=== PATIENT | female | born 1995 | race Caucasian/White ===

== ENCOUNTER 2017-11-17 21:08 | Inpatient (IN) | payer SELFPAY ==
[~2017-11-17] VITALS: Ht 162.6 cm; Wt 75.7 kg
[2017-11-17 21:48] LABS: CLARITY URINE CLEAR (CLEAR); COLOR URINE DARK YELLOW (YELLOW); KETONES URINE 4+ (NEGATIVE); LEUKOCYTE ESTERASE URINE TRACE (NEGATIVE); NITRITE URINE NEGATIVE (NEGATIVE); OCCULT BLOOD URINE NEGATIVE (NEGATIVE); PH URINE 6.5 (4.5-8.0); PROTEIN URINE NEGATIVE (NEGATIVE); SPECIFIC GRAVITY URINE 1.019 (1.005-1.030)
[2017-11-18] MEDS ORDERED: ONDANSETRON HCL 4MG/2ML INJ IV STA (00:14)
[2017-11-18] MEDS ORDERED: FAMOTIDINE 20MG/2ML VIAL IV STA (00:14)
[2017-11-18] MEDS ORDERED: SODIUM CHLORIDE 0.9% 1,000 ML IV ONE (00:14)
[2017-11-18 01:30] LABS: BASOPHILS % 0.4 % (0.0-2.0); EOSINOPHILS % 0.7 % (0.0-5.0); HEMATOCRIT. 40.8 % (36.0-48.0); HEMOGLOBIN. 14.4 g/dL (12.0-16.0); LYMPHOCYTES % 19.3 % (20.0-50.0); MEAN CORPUSCULAR VOLUME 87.8 fL (81.0-99.0); MEAN PLATELET VOLUME 8.4 fl (7.4-10.4); MONOCYTES % 7.9 % (2.0-8.0); NEUTROPHILS % 71.7 % (40.0-76.0); PLATELET 261 x1000/uL (130-400); RED BLOOD CELL COUNT 4.65 mill/uL (4.2-5.4); RED CELL DISTRIBUTION WIDTH 13.3 % (11.6-14.6)
[2017-11-18 01:31] LABS: CHLORIDE 100 mEq/L (98-107)
[2017-11-18 01:35] LABS: HCG SCREEN NEGATIVE; INR 1.1; PROTHROMBIN TIME 10.7 sec (9.1-11.1)
[2017-11-18 01:40] LABS: ETHANOL BLOOD < 10 mg/dL
[2017-11-18] MEDS ORDERED: ACETAMINOPHEN 650MG/20.3ML UDC GT PRN (04:15)
[2017-11-18] MEDS ORDERED: CLONIDINE 0.1MG TABLET PO PRN (04:15)
[2017-11-18] MEDS ORDERED: MORPHINE SULFATE 4 MG/ML CPJ (NOT FOR IM USE) IV PRN (04:15)
[2017-11-18] MEDS ORDERED: ONDANSETRON HCL 4MG/2ML INJ IV PRN (04:15)
[2017-11-18] MEDS ORDERED: ONDANSETRON 4MG ODT PO PRN (06:30)
[2017-11-18 07:50] LABS: HEPATITIS B SURFACE ANTIGEN NEGATIVE
[2017-11-18 08:00] VITALS: BP 131/84
[2017-11-18 08:18] LABS: HEPATITIS B CORE AB IGM NEGATIVE
[2017-11-18 08:19] LABS: HEPATITIS A AB IGM NEGATIVE (NEGATIVE)
[2017-11-18] MEDS: PANTOPRAZOLE SODIUM 40 MG/VIAL IV SCH (09:47)
[2017-11-18 12:00] VITALS: BP 123/86
[2017-11-18] MEDS ORDERED: BISACODYL 10MG SUPP PR PRN (12:45)
[2017-11-18] MEDS ORDERED: BISACODYL 5MG TABLET PO PRN (12:45)
[2017-11-18] MEDS ORDERED: BISACODYL 5MG TABLET PO SCH (12:45)
[2017-11-18] MEDS: DEXT 5%/0.45% NACL 1000ML 1,000 ML IV SCH ×2 (13:13→17:32)
[2017-11-18 16:00] VITALS: BP 116/74
[2017-11-18 17:55] LABS: MONOTEST NEGATIVE (NEGATIVE)
[2017-11-18 20:00] VITALS: BP 112/79
[2017-11-19] VITALS: BP 122/78
[2017-11-19 04:00] VITALS: BP 124/78
[2017-11-19] MEDS: DEXT 5%/0.45% NACL 1000ML 1,000 ML IV SCH (06:52)
[2017-11-19 07:01] LABS: BASOPHILS % 0.4 % (0.0-2.0); EOSINOPHILS % 1.1 % (0.0-5.0); HEMATOCRIT. 42.9 % (36.0-48.0); HEMOGLOBIN. 15.1 g/dL (12.0-16.0); LYMPHOCYTES % 27.7 % (20.0-50.0); MEAN CORPUSCULAR HEMOGLOBIN 30.9 pg (28.0-32.0); MEAN CORPUSCULAR VOLUME 87.9 fL (81.0-99.0); MEAN PLATELET VOLUME 8.8 fl (7.4-10.4); MONOCYTES % 8.7 % (2.0-8.0); NEUTROPHILS % 62.1 % (40.0-76.0); PLATELET 267 x1000/uL (130-400); RED BLOOD CELL COUNT 4.88 mill/uL (4.2-5.4); RED CELL DISTRIBUTION WIDTH 13.2 % (11.6-14.6)
[2017-11-19 07:04] LABS: PARTIAL THROMBOPLASTIN TIME 28.3 sec (23.4-31.0); PROTHROMBIN TIME 10.3 sec (9.1-11.1)
[2017-11-19 07:19] LABS: CHLORIDE 103 mEq/L (98-107)
[2017-11-19 07:30] LABS: AMYLASE 30 IU/L (25-115)
[2017-11-19 08:00] VITALS: BP 116/83
[2017-11-19] MEDS ORDERED: DOCUSATE SODIUM 250MG CAPSULE PO SCH (09:00)
[2017-11-19] MEDS: PANTOPRAZOLE SODIUM 40 MG/VIAL IV SCH (09:13)
[2017-11-19 12:00] VITALS: BP 123/81
[2017-11-19 13:43] VITALS: BP 128/81
[2017-11-20 13:06] LABS: EBV VIRAL CAPSID AB IGM <36.0 U/mL (0.0-35.9)
[2017-11-21 04:17] LABS: ANTI-NUCLEAR ANTIBODIES DIRECT Negative (Negative)
== END 2017-11-19 14:00 | disposition home or self-care (01) ==
LOC: ER 23:40 → 6EST 11-18 02:09 → ENRESERV 11-18 03:24 → SUPCPDRO 11-18 04:12
PROVIDERS: ADMIT Hospitalist; ATTEND Hospitalist
DX: K75.89 Other specified inflammatory liver diseases (principal); K83.1 Obstruction of bile duct; B19.9 Unspecified viral hepatitis without hepatic coma; Z90.49 Acquired absence of other specified parts of digestive tract
CPT/HCPCS: 36415; 74176; 76705; 80053; 80061; 80076; 80307; 81003; 82105; 82150; 83036; 83605; 83690; 84703; 85025; 85610; 85730; 86038; 86308; 86664; 86665; 86705; 86709; 86803; 87340; 96361; 96374; 96375; 99291; C9113; G0482; J2405; J3490; J7030